=== PATIENT | male | born 1970 | race Caucasian/White ===

== ENCOUNTER 2016-08-31 12:07 | Day surgery (SDC) | payer OTHER ==
[~2016-08-31] VITALS: Ht 172.7 cm; Wt 95.8 kg
[~2016-08-31 12:07] MED LIST: CLEOCIN HCL300 MG PO; FLEXERIL 1010 MG/TAB PO; LEVAQUIN 750MG750 M1 PO; LIPITOR 40MG TA40 MG PO; NEXIUM 40MG40 MG PO; PRINZIDE 25 MG-1 TAB PO; ROBAXIN 50500 MG/TAB PO
[2016-08-31] MEDS ORDERED: CELEBREX 200MG200 MG PO (12:18)
[2016-08-31 12:46] VITALS: BP 111/82; PULSE 74; TEMP 98.6
[2016-08-31 14:18] VITALS: BP 113/76; PULSE 58; TEMP 97.8
[2016-08-31 14:33] VITALS: BP 117/72; PULSE 65
[2016-08-31 14:48] VITALS: BP 109/80; PULSE 59
[2016-08-31 17:21] VITALS: BP 116/73; PULSE 57
== END 2016-08-31 15:00 | disposition home or self-care (01) ==
LOC: SDCO 12:07
DX: K29.30 Chronic superficial gastritis without bleeding (principal); K31.89 Other diseases of stomach and duodenum; K64.0 First degree hemorrhoids; K57.30 Diverticulosis of large intestine without perforation or abscess without bleeding; F17.210 Nicotine dependence, cigarettes, uncomplicated; Z68.33 Body mass index [BMI] 33.0-33.9, adult
CPT/HCPCS: OP; J2250; J3010; J7030

== ENCOUNTER 2018-07-24 00:23 | Emergency (ER) | payer OTHER, BC ==
[~2018-07-24] VITALS: Ht 172.7 cm; Wt 95.5 kg
[~2018-07-24 00:23] MED LIST changes: +CELEBREX 200MG200 MG PO
[2018-07-24 00:30] VITALS: BP 132/83; TEMP 99.3
[2018-07-24] MEDS ORDERED: BACTRIM DS 8001 TAB PO ×2 (01:05→01:11)
[2018-07-24] MEDS ORDERED: SSD25 GM TP ×2 (01:05→01:11)
[2018-07-24] MEDS ORDERED: CEPHALEXIN500 M1 PO ×2 (01:05→01:11)
[2018-07-24 01:19] VITALS: PULSE 80
== END 2018-07-24 01:17 | disposition home or self-care (01) ==
LOC: COL.ER 00:23
DX: T24.202A Burn of second degree of unspecified site of left lower limb, except ankle and foot, initial encounter (principal); T31.0 Burns involving less than 10% of body surface; Z23 Encounter for immunization; X17.XXXA Contact with hot engines, machinery and tools, initial encounter; Y93.55 Activity, bike riding; Y92.69 Other specified industrial and construction area as the place of occurrence of the external cause